=== PATIENT | male | born 1930 | race Caucasian/White ===

== ENCOUNTER → 2018-08-24 | Outpatient (CLI) | payer MEDICARE ==
--- NOTE | 2018-08-24 16:07 | PCVCIMAG ---
EXAM: RIGHT LOWER EXTREMITY ARTERIAL DUPLEX INDICATION: Peripheral Arterial Disease. Leg pain. FINDINGS: Right Leg: Common femoral and profunda femoral arteries are patent. Mild 40-50% stenosis distal [place] superficial femoral artery. Popliteal artery is patent. 50% stenosis mid anterior tibial artery. Peroneal artery is patent. 50% stenosis distal posterior tibial artery. IMPRESSION: 40-50% stenosis distal [place] right superficial femoral artery. 50% stenosis mid right anterior tibial artery. 50% stenosis distal right posterior tibial artery. LOC:[id number]
== END | disposition home or self-care (01) ==
LOC: PCVCIMAG 15:22
PROVIDERS: ATTEND Podiatrist Foot & Ankle Surgery
DX: I73.9 Peripheral vascular disease, unspecified (principal); Z78.9 Other specified health status
CPT/HCPCS: 93926